=== PATIENT | male | born 1955 | race Caucasian/White ===

== ENCOUNTER 2016-06-21 11:00 | Emergency (ER) | payer OTHER, MEDICARE ==
[~2016-06-21] VITALS: Ht 167.6 cm; Wt 72.6 kg
[~2016-06-21 11:00] MED LIST: ACETAMINOPHEN-1 EAC3 PO; ALPHAGAN P5 M1 OPH; AMBIEN 10MG10 MG PO; ASPIRIN81 M4 PO; ATIVAN0.5 M1 PO; ATIVAN0.5 MG PO; ATIVAN1 MG PO; ATORVASTATIN CA40 MG PO; BACTRIM 400 MG-1 TAB PO; BACTRIM DS TAB1 EACH PO; BUMETANIDE1 M1 PO; BUPROPION HYDR300 M1 PO; CARVEDILOL6.25 MG PO; CELLCEPT250 MG PO; CEPHALEXIN500 M3 PO; CLOTRIMAZOLE10 M1 PO; COREG 12.5MG12.5 MG PO; CREON 120000 U-1 ECC PO; CYCLOBENZAPRINE5 MG PO; FLOMAX0.4 M1 PO; HALOPERIDOL1 M1 PO; HYDRALAZINE HCL25 M1 PO; LEVOTHROID0.175 MG PO; LEVOTHYROXINE0.15 MG PO; LEVOTHYROXINE175 MCG PO; LISINOPRIL10 M1 PO; LORAZEPAM1 MG PO; MACROBID 100 M100 MG PO; MIRALAX119 GM PO; MIRALAX17 GM PO; MULTIVITAMIN1 TAB PO; NEURONTIN100 MG PO; NEXIUM 40MG40 MG PO; NITROSTAT0.4 M1 SL; PERCOCET 5-3251 EACH PO; PRAVASTATIN40 MG PO; PREDNISONE5 M1 PO; PROGRAF 1MG1 MG PO; PROGRAF1 M1 PO; PROTOPIC 0.1% O60 GM PO; REMERON 7.5MG7.5 MG PO; REMERON15 M3 PO; ROZEREM8 MG PO; SODIUM BICARB325 MG PO; SODIUM BICARBO325 M1 PO; SULFAMETHOXAZO1 EAC1 PO; TACROLIMUS0.5 MG PO; TACROLIMUS1 M1 PO; TYLENOL #31 TAB PO; TYLENOL WITH C1 EACH PO; VITAMIN C500 M3 PO; VITAMIN D1000 IU PO; VITAMIN E100 I2 PO; WELLBUTRIN XL150 MG PO; XALATAN2.5 ML OPH; [UNRECOGNIZED DRUG - CODE] PO
[2016-06-21] MEDS ORDERED: TYLENOL325 M1 PO (11:05)
[2016-06-21] MEDS ORDERED: B COMPLEX1 EACH PO (11:06)
[2016-06-21] MEDS ORDERED: ARANESP60 MCG/0.3 SC (11:07)
[2016-06-21] MEDS ORDERED: COLACE100 M1 PO (11:08)
[2016-06-21] MEDS ORDERED: FAMOTIDINE20 M1 PO (11:09)
[2016-06-21] MEDS ORDERED: SENNA8.6 M3 PO (11:10)
[2016-06-21] MEDS ORDERED: HALOPERIDOL1 M1 PO (11:11)
[2016-06-21] MEDS ORDERED: CARVEDILOL12.5 M1 PO (11:12)
[2016-06-21] MEDS ORDERED: HYDRALAZINE HCL25 M1 PO (11:14)
[2016-06-21] MEDS ORDERED: PRAVACHOL40 M1 PO (11:15)
--- NOTE | 2016-06-21 12:58 | RADIOLOGY REPORT ---
EXAMINATION: XR PORTABLE CHEST CLINICAL INFORMATION: Status post fall. Rule out rib fracture. COMPARISON: Chest radiograph 03/06/2016. Rib radiographs 03/08/2016. TECHNIQUE: Portable AP 80 degree upright view of the chest was obtained. FINDINGS: Left jugular dialysis catheter extends to the SVC/RA junction region. Median sternotomy wires are seen. There are surgical clips in the left axillary region. The lung volumes are decreased with minor linear scarring or atelectasis at the left lung base. No evidence of pneumothorax or pleural effusion. There appears to be a mildly displaced left fifth rib fracture laterally; this finding was not obvious on the prior rib radiographs. IMPRESSION: Mild linear atelectasis is present at the left lung base. Mildly displaced left fifth rib fracture is demonstrated. No evidence of pneumothorax or pleural effusion.
--- NOTE | 2016-06-21 13:11 | ED MVC/FALL/TRAUMA COMPLAINT ---
History of Present Illness General Chief Complaint: General Adult Stated Complaint: BIBA BUMP ON THE BACK OF HIS HEAD Source: patient, family Exam Limitations: no limitations Vital Signs & Intake/Output Vital Signs & Intake/Output Vital Signs Date Time Temp Pulse Resp B/P Pulse O2 O2 Flow FiO2 Ox Delivery Rate 06/21 1231 96.4 06/21 1101 96.4 78 18 151/69 99 Room Air Allergies Coded Allergies: Penicillins (RASH ALL OVER 01/01/16) ciprofloxacin (From CIPRO) (SOB 01/01/16) meperidine (SOB, CHEST PAIN 01/01/16) sulfamethoxazole (From BACTRIM) (DOES SOMETHING TO HIS TRANSPLANT 04/16/16) trimethoprim (From BACTRIM) (DOES SOMETHING TO HIS TRANSPLANT 04/16/16) lactose (DIARRHEA 01/01/16) Reconcile Medications Acetaminophen (Tylenol) 325 MG TABLET 2 TAB PO Q8P PRN PAIN (Reported) Aspirin (Aspirin*) 81 MG TAB.CHEW 1 TAB PO DAILY HEART HEALTH (Reported) Brimonidine Tartrate (Alphagan P) 0.1 % DROPS 1 GTT OPH BID EYE (Reported) Carvedilol 12.5 MG TABLET 1 TAB PO BID HEART (Reported) Darbepoetin Jose in Polysorbat (Aranesp) 60 MCG/0.3 ML SYRINGE 1 INJ SC QW UNKNOWN (Reported) Docusate Sodium (Colace) 100 MG CAPSULE 1 CAP PO DAILY GI (Reported) Famotidine 20 MG TABLET 1 TAB PO DAILY NEEDED PRN GI (Reported) Haloperidol 1 MG TABLET 1 TAB PO QPM MENTAL HEALTH (Reported) Hydralazine HCl 25 MG TABLET 1 TAB PO TID HEART (Reported) Latanoprost (Xalatan) 0.005 % DROPS 1 GTT OPH QPM EYE (Reported) Levothyroxine Sodium 175 MCG TABLET 1 TAB PO DAILY AC THYROID HEALTH ( Reported) Mirtazapine (Remeron) 15 MG TAB.RAPDIS 1.5 TAB PO AT BEDTIME SLEEP (Reported ) Mycophenolate Mofetil (Cellcept) 250 MG CAPSULE 3 CAP PO BID TRANSPLANT ( Reported) Nitroglycerin (Nitrostat) 0.4 MG TAB.SUBL 1 TAB SL AD PRN CHEST PAIN ( Reported) 1st sign of attack; may repeat every 5 minutes until relief; if pain persists after 3 tablets in 15 minutes, prompt medical att Polyethylene Glycol 3350 (Miralax) 119 GM POWDER 17 GM PO NEEDED CONSTIPATION (Reported) mix with water, juice, soda, coffee or tea Pravastatin Sodium 80 MG TABLET 1 TAB PO DAILY HLD (Reported) Prednisone 5 MG TABLET 1 TAB PO DAILY TRANSPLANTS (Reported) Sennosides (Senna) 8.6 MG TABLET 1 TAB PO QPM GI (Reported) Sodium Bicarbonate 325 MG TABLET 4 TAB PO BID SUPPLEMENT (Reported) Tacrolimus 1 MG CAPSULE 1 CAP PO BID RENAL TRANSPLANT (Reported) Vitamin B Complex (B Complex) 1 EACH TABLET 1 TAB PO DAILY SUPPLEMENT ( Reported) Triage Note: PT STATES HE WAS USING HIS WALKER AND FELL BACKWARD HITTING HIS HEAD. PT STATES HE HAD + LOC NO BLOOD OR ABRASION NOTED TO BACK OF HEAD. Triage Nurses Notes Reviewed? yes HPI: 60 yo M PMH HTN, HLD, DM, CVA, Hypothyroidism, ESRD (on HD //) s/p renal Tx, PVD s/p R. BKA and L midfoot amputation presenting with head pain s/p fall. Patient was walking with walker (normally ambulates in wheelchair), lost balance , fell backwards striking occipital head on carpeted floor, ?unclear LOC, patient states he was unconscious for seconds, brief (1-2 second) loss of vision in right eye, found alert/awake by ~10 seconds after falling. C/O occipital head pain. Mechanical fall, denies precipitating dizziness, chest pain, palpitations, SOB, syncope. Denies neck pain/stiffness, N/V, diffuse headache, other focal neurologic Sx. Takes ASA 81 daily, no other blood thinners. (CAYDEN COLLINS,HERNANDO) Past History Travel History Traveled to [place] past 21 day No Medical History Any Pertinent Medical History? see below for history Neurological: CVA, TIA, NEUROPATHY EENT: diabetic retinopathy, diabetic retinopathy blindness left eye Cardiovascular: CAD, hypertension, hyperlipidemia, culture-negative endocarditis Respiratory: NONE Gastrointestinal: GERD, diverticulosis Hepatic: NONE Renal: chronic kidney disease, renal transplant Musculoskeletal: ARTHRITIS Psychiatric: anxiety Endocrine: diabetes, hypothyroidism, pancreas transplant Blood Disorders: NONE Cancer(s): NONE CLIENT DEVELOPMENT MANAGER/Reproductive: ENLARGED PROSTATE History of MRSA: No History of VRE: No History of CDIFF: No Surgical History Surgical History: N Psychosocial History Who do you live with Spouse Services at Home Nursing (2/WEEK), Occupational Therapy, Physical Therapy What is your primary language Taiwanese Tobacco Use: Never used Family History Family History, If Any: MOTHER (HTN). . FH: lung cancer Hx Contributory? Yes (HERNANDO RODARTE MD) Review of Systems Review of Systems Constitutional: Denies: chills, fever, weakness. Eyes: Reports: blindness. Ears, Nose, Throat, Mouth: Reports: no symptoms. Respiratory: Reports: no symptoms. Cardiovascular: Reports: no symptoms. Gastrointestinal/Abdominal: Reports: no symptoms. Genitourinary: Reports: no symptoms. Musculoskeletal: Reports: no symptoms. Skin: Reports: no symptoms. Neurological/Psychological: Reports: headache. All Other Systems: Reviewed and Negative (HERNANDO RODARTE MD) Physical Exam Physical Exam General Appearance: well developed/nourished, no apparent distress, alert, awake Head: evidence of injury, 2-3 cm hematoma to occipital scalp Eyes: Bilateral: EOMI. Ears, Nose, Throat, Mouth: Tympanic normal Neck: normal inspection, no midline tenderness Respiratory: normal breath sounds, chest non-tender Cardiovascular: regular rate/rhythm Peripheral Pulses: 2+ radial (R), 2+ radial (L) Gastrointestinal: normal bowel sounds, soft, non-tender Back: normal inspection Extremities: R BKA, L midfoot amputation Neurologic/Psych: awake, alert, oriented x 3 Comments: HEENT: 2-3 cm hematoma to occipital scalp, mild TTP without crepitus, instability, step-off or deformity, no overlying laceration/abrasion No TTP over facial bones, midface stable Left pupil non-reactive (baseline per patient and ), EOMI No hemotympanum bilaterally No septal deviation, hematoma Neck: No midline c-spine TTP Core Measures ACS in differential dx? No Severe Sepsis Present: No Septic Shock Present: No (HERNANDO RODARTE MD) Progress Differential Diagnosis: C/T/L spine injury, ICH, Hematoma, Soft tissue injury, Skull Fx (HERNANDO RODARTE MD) Plan of Care: Orders Procedure Date/time Status EKG 06/21 1130 Active 60 yo M PMH as above presenting with occipital head pain s/p mechanical fall. VSS, trauma exam as above. DDx: Hematoma, Skull Fx, C-spine Fx, ICH. Tylenol given with improvement in pain. CXR without acute traumatic injury or airspace disease. CT head/c-spine with ?NPH (seen on prior), no acute fracture, dislocation, ICH. CT scan results discussed with patient, per prior work-up for NPH without treatment, will f/u with PMD to discuss results. Ambulatory at baseline with walker in ED. D/Demetrio with return precautions, plan to f/u with PMD, tylenol for pain. D/W Dr. Brink. (CAYDEN COLLINS,HERNANDO) Departure Departure Disposition: HOME OR SELF CARE Condition: Stable Clinical Impression Primary Impression: Scalp hematoma Qualifiers: Encounter type: initial encounter Qualified Code: S00.03XA - Contusion of scalp, initial encounter Secondary Impressions: Fall Qualifiers: Encounter type: initial encounter Qualified Code: W19.XXXA - Unspecified fall, initial encounter Referrals: LAMINE COLLINS,ILANA Lubin (PCP/Family) Additional Instructions: Take tylenol as needed for pain. Follow up with Dr. Lay in the next 2-3 days, discuss results of CT head and possible normal pressure hydrocephalus. Return to the ED for any new, worsening, or concerning symptoms. Departure Forms: Customer Survey General Discharge Information (CAYDEN COLLINS,HERNANDO) Resident Co-Sign Statement Statement: ED Attending supervision documentation- [x] I saw and evaluated the patient. I have also reviewed all the pertinent lab results and diagnostic results. I agree with the findings and the plan of care as documented in the Resident's documentation. [] I have reviewed the ED Record and agree with the Resident's documentation. [] Additions or exceptions (if any) to the Resident's note and plan are summarized below: [] (BETTE COLLINS,JÚNIOR Pratt)
--- NOTE | 2016-06-21 13:16 | CT SCAN REPORT ---
EXAMINATION: CT OF THE HEAD WITHOUT CONTRAST CT SCAN OF THE CERVICAL SPINE WITHOUT CONTRAST CLINICAL INFORMATION: Fall. Occipital head pain. Occipital hematoma. Evaluate for intracranial hemorrhage. Low neck pain. COMPARISON: CT scan of the head dated 03/08/2016 and 02/10/2016. CT scan of the cervical spine dated 05/01/2014. TECHNIQUE: Contiguous axial imaging of the head was performed from the skull base to vertex without intravenous administration of contrast. Coronal reformations were obtained. Contiguous axial imaging of the cervical spine was performed from the skull base to the thoracic inlet without intravenous administration of contrast. Coronal and sagittal reformations were obtained. DLP: 959.50 mGy-cm. FINDINGS: CT SCAN OF THE HEAD: There is no evidence of acute intracranial hemorrhage or territorial infarction. No abnormal mass-effect or midline shift is seen. Pino to white matter differentiation is well preserved. No extra-axial fluid collections are identified. The lateral and third ventricles are again found to be enlarged, out of proportion to the degree of sulcal enlargement, raising the question of normal pressure hydrocephalus. There is persistent periventricular deep white matter and basal ganglia low-attenuation, consistent with ischemic small vessel disease. Dense calcifications of the vertebral arteries is seen. The osseous structures and soft tissues are normal. The mastoid air cells and visualized portions of the paranasal sinuses are well-aerated. CT SCAN OF THE CERVICAL SPINE: Normal alignment of the cervical spine is seen with no evidence of acute fracture or dislocation. Atlantoaxial articulation shows mild degenerative changes but is otherwise unremarkable. Craniocervical junction is intact. Disc space height is well-maintained at all levels. Mild facet arthropathy is seen at C3-C4 and C4-C5. No paraspinal soft tissue abnormality seen. IMPRESSION: CT SCAN OF THE HEAD: 1. No acute intracranial pathology. 2. Chronic finding of asymmetrically enlarged lateral and third ventricles, out of proportion to the degree of sulcal enlargement. Findings raise the suspicion of normal pressure hydrocephalus. Clinical correlation requested. 3. Changes of periventricular and basal ganglia diffuse ischemic small vessel disease again noted, unchanged. CT SCAN OF THE CERVICAL SPINE: 1. Normal alignment with no acute fracture or dislocation. 2. Mild facet arthropathy at C3-C4 and C4-C5.
[2016-06-21 14:35] VITALS: BP 142/63
[2016-10-19] MEDS ORDERED: FERROUS SULFAT325 M3 PO (11:56)
[2016-10-19] MEDS ORDERED: SANTYL30 GM TOP (11:57)
[2016-10-19] MEDS ORDERED: LASIX20 M1 PO (11:58)
[2016-10-19] MEDS ORDERED: GABAPENTIN100 M2 PO (11:59)
[2016-10-19] MEDS ORDERED: PROGRAF0.5 MG PO (12:02)
== END 2016-06-21 15:07 ==
LOC: ERH 11:00
DX: S00.03XA Contusion of scalp, initial encounter (principal); I10 Essential (primary) hypertension; W19.XXXA Unspecified fall, initial encounter; Y93.01 Activity, walking, marching and hiking
CPT/HCPCS: 93005; 93010

== ENCOUNTER 2016-07-27 17:25 | Emergency (ER) | payer OTHER, MEDICARE ==
[~2016-07-27] VITALS: Ht 167.6 cm; Wt 72.6 kg
[~2016-07-27 17:25] MED LIST changes: +ARANESP60 MCG/0.3 SC; +B COMPLEX1 EACH PO; +CARVEDILOL12.5 M1 PO; +COLACE100 M1 PO; +FAMOTIDINE20 M1 PO; +PRAVACHOL40 M1 PO; +SENNA8.6 M3 PO; +TYLENOL325 M1 PO
[2016-07-27 17:40] LABS: ABSOLUTE BASOPHIL COUNT 0 /CUMM (0.0-0.2); ABSOLUTE EOSINOPHIL COUNT 0.3 /CUMM (0.0-0.7); ABSOLUTE GRANULOCYTE CT 8.4 /CUMM (1.4-6.5); ABSOLUTE LYMPH COUNT 1.4 /CUMM (1.2-3.4); ABSOLUTE MONOCYTE COUNT 0.7 /CUMM (0.10-0.60); BASOPHIL % 0.1 % (0.0-2.0); EOSINOPHIL % 2.9 % (0-5); GRANULOCYTE % 77.7 % (42.2-75.2); HEMATOCRIT 22.4 % (42-52); MEAN CORPUSCULAR HGB CONC 31.3 G/DL (33.0-37.0); MEAN CORPUSCULAR VOLUME 86.4 FL (80.0-94.0); MEAN PLATELET VOLUME 9.3 FL (7.4-10.4); PLATELET COUNT 211 /CUMM (130-400); RBC DISTRIBUTION WIDTH 15.6 % (11.5-14.5); RED BLOOD CELL CT 2.59 /CUMM (4.70-6.10); WHITE BLOOD CELL COUNT 10.8 /CUMM (4.8-10.8)
--- NOTE | 2016-07-27 17:56 | ED GENERAL ADULT ---
History of Present Illness General Chief Complaint: General Adult Stated Complaint: DIARRHEA X 4 DAYS, WEAKNESS, LETHARGY, MALAISE Source: patient, family, old records, EMS Exam Limitations: no limitations Vital Signs & Intake/Output Vital Signs & Intake/Output Vital Signs Date Time Temp Pulse Resp B/P Pulse O2 O2 Flow FiO2 Ox Delivery Rate 07/27 2000 97.5 85 18 113/53 98 Room Air 07/27 1816 99 07/27 1730 96.5 89 18 119/56 99 Room Air ED Intake and Output 07/28 0000 07/27 1200 Intake Total 15 Output Total Balance 15 Intake, IV 15 Intake, Oral Patient 160 lb Weight Allergies Coded Allergies: Penicillins (RASH ALL OVER 07/27/16) meperidine (SOB, CHEST PAIN 07/27/16) sulfamethoxazole (From BACTRIM) (DOES SOMETHING TO HIS TRANSPLANT 07/27/16) trimethoprim (From BACTRIM) (DOES SOMETHING TO HIS TRANSPLANT 07/27/16) lactose (DIARRHEA 07/27/16) Reconcile Medications Acetaminophen (Tylenol) 325 MG TABLET 2 TAB PO Q8P PRN PAIN (Reported) Aspirin (Aspirin*) 81 MG TAB.CHEW 1 TAB PO DAILY HEART HEALTH (Reported) Brimonidine Tartrate (Alphagan P) 0.1 % DROPS 1 GTT OPH BID EYE (Reported) Carvedilol 12.5 MG TABLET 1 TAB PO BID HEART (Reported) Darbepoetin Jose in Polysorbat (Aranesp) 60 MCG/0.3 ML SYRINGE 1 INJ SC QW UNKNOWN (Reported) Docusate Sodium (Colace) 100 MG CAPSULE 1 CAP PO DAILY GI (Reported) Famotidine 20 MG TABLET 1 TAB PO DAILY NEEDED PRN GI (Reported) Haloperidol 1 MG TABLET 1 TAB PO QPM MENTAL HEALTH (Reported) Hydralazine HCl 25 MG TABLET 1 TAB PO TID HEART (Reported) Latanoprost (Xalatan) 0.005 % DROPS 1 GTT OPH QPM EYE (Reported) Levothyroxine Sodium 175 MCG TABLET 1 TAB PO DAILY AC THYROID HEALTH ( Reported) Mirtazapine (Remeron) 15 MG TAB.RAPDIS 1 TAB PO AT BEDTIME SLEEP (Reported) Mycophenolate Mofetil (Cellcept) 250 MG CAPSULE 3 CAP PO BID TRANSPLANT ( Reported) Nitroglycerin (Nitrostat) 0.4 MG TAB.SUBL 1 TAB SL AD PRN CHEST PAIN ( Reported) 1st sign of attack; may repeat every 5 minutes until relief; if pain persists after 3 tablets in 15 minutes, prompt medical att Polyethylene Glycol 3350 (Miralax) 119 GM POWDER 17 GM PO NEEDED CONSTIPATION (Reported) mix with water, juice, soda, coffee or tea Pravastatin Sodium 80 MG TABLET 1 TAB PO DAILY HLD (Reported) Prednisone 5 MG TABLET 1 TAB PO DAILY TRANSPLANTS (Reported) Sennosides (Senna) 8.6 MG TABLET 1 TAB PO QPM GI (Reported) Sodium Bicarbonate 325 MG TABLET 4 TAB PO BID SUPPLEMENT (Reported) Tacrolimus 1 MG CAPSULE 1-1.5 CAP PO BID RENAL TRANSPLANT (Reported) TAKE 1.5 IN AM AND 1 IN PM Vitamin B Complex (B Complex) 1 EACH TABLET 1 TAB PO DAILY SUPPLEMENT ( Reported) Triage Note: PT BIBA FROM HOME C/C DIARRHEA X 4 DAYS WITH WEAKNESS, LETHARGY AND GENERAL MALAISE. ALSO PER REPORT PATIENTS LAST EPISODE OF DIARRHEA HAD SOME BRB IN IT. PT A/O ON ARRIVAL, DENIES ANY PAIN. 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 PT R ABD NOTED TO BE QUIVERING DURING TRIAGE PROCESS, WHEN ASKING PATIENT ABOUT SAME REPORTS IT HAS HAPPENED BEFORE, WHEN ASKED WHY PT RESPONDED IN ANGRY TONE STATING "BECAUSE I'M FREEZING". PT IS OTHER EAST NOT NOTED TO BE SHIVERING. Triage Nurses Notes Reviewed? yes HPI: Patient is a 60-year-old male presents complaining of diarrhea. Diarrhea onset 8 days ago. 2-3 episodes of diarrhea daily. Today patient had an episode of bright red blood in his stool. Patient attributes the bright red blood in his stool 2 skin irritation around his anus. Patient also had one episode of vomiting that appeared brown in color. No current nausea. Patient had associated generalized weakness earlier today, denies any generalized weakness at this time. Patient was on antibiotics a couple of weeks ago while hospitalized at [facility](transplant specialist Dr. Trivedi). Patient required a blood transfusion while he was hospitalized. Patient scheduled to have a darbepoetin injection in 2 days. Patient had a C. difficile test sent 2 days ago which was negative. Patient denies abdominal pain, chest pain, fevers, chills. (HEILBRALLYSON BERUMEN) Past History Travel History Traveled to [place] past 21 day No Medical History Any Pertinent Medical History? see below for history Neurological: CVA, TIA, NEUROPATHY EENT: diabetic retinopathy, diabetic retinopathy blindness left eye Cardiovascular: CAD, hypertension, hyperlipidemia, culture-negative endocarditis Respiratory: NONE Gastrointestinal: GERD, diverticulosis Hepatic: NONE Renal: chronic kidney disease, renal transplant Musculoskeletal: ARTHRITIS Psychiatric: anxiety Endocrine: diabetes, hypothyroidism, pancreas transplant Blood Disorders: NONE Cancer(s): NONE SYNCHRO ASSEMBLER/Reproductive: ENLARGED PROSTATE History of MRSA: No History of VRE: No History of CDIFF: No Surgical History Surgical History: N Psychosocial History Who do you live with Spouse Services at Home Nursing (2/WEEK), Occupational Therapy, Physical Therapy What is your primary language Czech Family History Family History, If Any: MOTHER (HTN). . FH: lung cancer Hx Contributory? No (ALLYSON ADORNO) Review of Systems Review of Systems Constitutional: Reports: weakness (none currently). Denies: chills, fever. EENTM: Reports: no symptoms. Respiratory: Denies: cough, short of breath. Cardiovascular: Denies: chest pain. GI: Reports: see HPI. Genitourinary: Reports: no symptoms. Musculoskeletal: Reports: no symptoms. Skin: Reports: lesions. Neurological/Psychological: Reports: no symptoms. Hematologic/Endocrine: Reports: bleeding. Immunologic/Allergic: Reports: no symptoms. (ALLYSON ADORNO) Physical Exam Physical Exam General Appearance: alert, awake Head: atraumatic, normal appearance Ears, Nose, Throat: normal pharynx, normal ENT inspection, hearing grossly normal Neck: normal inspection, supple, full range of motion Respiratory: normal breath sounds, chest non-tender, no respiratory distress, lungs clear Cardiovascular: regular rate/rhythm Gastrointestinal: normal bowel sounds, soft, non-tender Rectal: patient declined rectal exam Back: normal inspection, normal range of motion Extremities: right BKA. Trace edema left lower extremity Neurologic/Psych: awake, alert, oriented x 3 Skin: warm/dry Lymphatic: no anterior cervical marya Core Measures ACS in differential dx? Yes ASA ordered for poss ACS? No-d/t bleeding/risk of CVA/TIA Diagnosis: No Severe Sepsis Present: No Septic Shock Present: No (ALLYSON ADORNO) Progress Differential Diagnoses I considered the following diagnoses in my evaluation of the patient: Anemia, intra-abdominal infection, sepsis, ischemic colitis, diverticulitis, electrolyte abnormality, acute kidney injury Plan of Care: Orders Procedure Date/time Status MISTAKE 07/28 1755 Active EKG 07/28 1755 Active Add-on Test (ER Only) 07/27 1752 Active TYPE & SCREEN (NOT X-MATCH) 07/27 173 Complete TROPONIN LEVEL 07/27 1728 Complete MAGNESIUM 07/27 1728 Complete LACTIC ACID 07/27 1728 Complete COMPREHENSIVE METABOLIC PANEL 07/27 1728 Complete CBC WITHOUT DIFFERENTIAL 07/27 1728 Complete Laboratory Tests 07/27/162028: Lactic Acid Cancelled 07/27/161729: Anion Gap 13, Estimated GFR 28 L, BUN/Creatinine Ratio 25.0, Glucose 120 H, Lactic Acid 2.4 H, Calcium 9.0, Magnesium 1.5 L, Total Bilirubin 0.3, AST 9 L , ALT 26, Alkaline Phosphatase 46, Troponin I 0.05, Total Protein 6.0 L, Albumin 3.5, Globulin 2.5, Albumin/Globulin Ratio 1.4, CBC w Diff NO MAN DIFF REQ, RBC 2.59 L, MCV 86.4, MCH 27.0, RDW 15.6 H, MPV 9.3, Gran % 77.7 H, Lymphocytes % 13.1 L, Monocytes % 6.2, Eosinophils % 2.9, Basophils % 0.1, Absolute Granulocytes 8.4 H, Absolute Lymphocytes 1.4, Absolute Monocytes 0.7 H, Absolute Eosinophils 0.3, Absolute Basophils 0, PUBS MCHC 31.3 L 07/27/161728: Urine Color Cancelled, Urine Clarity Cancelled, Urine pH Cancelled, Ur Specific [place] Cancelled, Urine Protein Cancelled, Urine Ketones Cancelled, Urine Nitrite Cancelled, Urine Bilirubin Cancelled, Urine Urobilinogen Cancelled, Ur Leukocyte Esterase Cancelled, Ur Microscopic Cancelled, Urine Hemoglobin Cancelled, Urine Glucose Cancelled Discussed with Dr. Coleman. 07/27/2016 7:41:26 PM: Discussed with Dr. Brown([place] [facility] service): start patient on antibiotics and transfer over to [place] to 9W. Results and disposition discussed with patient and his . Consented to transfer. Ceftriaxone and Flagyl ordered. (RUCHI GRIMALDO,ALLYSON) Diagnostic Imaging: Viewed by Me: CT Scan. Discussed w/RAD: CT Scan. Radiology Impression: PATIENT: SANFORD MALIK PRESENT AGE: 60 PATIENT ACCOUNT NO: [id number] : 55 LOCATION: [facility] ORDERING PHYSICIAN: ALLYSON GRIMALDO SERVICE DATE: 07/27/16 EXAM TYPE: CAT - CT ABD & PELVIS W/O IV CONTRAS EXAMINATION: CT ABDOMEN AND PELVIS WITHOUT CONTRAST CLINICAL INFORMATION: Diarrhea, bright red blood per rectum. COMPARISON: 02/20/2016. TECHNIQUE: Contiguous axial thin section helical images of the abdomen and pelvis were performed without oral or IV contrast. The data set was reformatted in the coronal and sagittal planes and reviewed on an independent workstation. DLP: 255 mGy-cm. FINDINGS: The visualized lung bases are clear. The visualized portions of the heart are unremarkable. There is a small hiatal hernia. The liver is of normal size and attenuation without focal lesions nor intrahepatic biliary ductal dilation. Patient status post cholecystectomy. Surgical clips are identified. The spleen, pancreas, adrenal glands are unremarkable. There is neither hydronephrosis nor nephrolithiasis. There is marked bilateral renal cortical thinning. There is a stable exophytic 7 mm soft tissue attenuation lesion emanating from the lower pole of the left kidney. There are diffuse vascular calcifications present bilaterally. There is a fat-containing anterior abdominal wall hernia. There is no abdominal free fluid. There is neither mesenteric nor retroperitoneal lymphadenopathy. There is diverticulosis. Within the sigmoid colon, there is mild wall thickening along with mild adjacent fat stranding. There is no pelvic free fluid.. The urinary bladder is well distended. There is no bladder wall thickening. There is neither pelvic nor inguinal lymphadenopathy. Bone windows: Neither sclerotic nor lytic bone lesions are identified. There is stable disc height loss and endplate sclerotic change at L2/L3. IMPRESSION: Sigmoid diverticulosis with mild manifestations of diverticulitis. No fluid collections identified. Diffuse vascular calcification. Bilateral renal atrophy. DICTATED BY: MELANIE JAY MD DATE/TIME DICTATED:07/27/161834 OPTICIAN APPRENTICE DISPENSING:LIALA DATE/TIME TRANSCRIBED:07/27/161834 CONFIDENTIAL, DO NOT COPY WITHOUT APPROPRIATE AUTHORIZATION. <Electronically signed in Other Vendor System> SIGNED BY: MELANIE JAY MD 07/27/16 6528 Initial ED EKG: normal sinus rhythm at 88 bpm normal axis, normal intervals, possible LVH, nonspecific ST/T-wave changes in the lateral leads compared to previous EKG Prior EKG: changed Rhythm Strip: normal sinus rhythm (ALLYSON ADORNO) Departure Departure Time of Disposition: 1941 Disposition: OTHER [facility] (ACUTE) Condition: Stable Clinical Impression Primary Impression: Diverticulitis Secondary Impressions: [id number] kidney injury, Anemia Referrals: LAMINE COLLINS,ILANA Lubin (PCP/Family) Departure Forms: Customer Survey General Discharge Information (ALLYSON ADORNO) PA/TOOL AND CUTTER GRINDER Co-Sign Statement Statement: ED Attending supervision documentation- [X] I saw and evaluated the patient. I have also reviewed all the pertinent lab results and diagnostic results. I agree with the findings and the plan of care as documented in the PA's/TOOL AND CUTTER GRINDER's documentation. [X] I have reviewed the ED Record and agree with the PA's/TOOL AND CUTTER GRINDER's documentation. [] Additions or exceptions (if any) to the PAs/TOOL AND CUTTER GRINDER's note and plan are summarized below: [] (ROCHELLE COLLINS,ILANA Michaud) Critical Care Note Critical Care Note Critical Care Time: non-applicable (ALLYSON ADORNO)
--- NOTE | 2016-07-27 18:49 | CT SCAN REPORT ---
EXAMINATION: CT ABDOMEN AND PELVIS WITHOUT CONTRAST CLINICAL INFORMATION: Diarrhea, bright red blood per rectum. COMPARISON: 02/20/2016. TECHNIQUE: Contiguous axial thin section helical images of the abdomen and pelvis were performed without oral or IV contrast. The data set was reformatted in the coronal and sagittal planes and reviewed on an independent workstation. DLP: 255 mGy-cm. FINDINGS: The visualized lung bases are clear. The visualized portions of the heart are unremarkable. There is a small hiatal hernia. The liver is of normal size and attenuation without focal lesions nor intrahepatic biliary ductal dilation. Patient status post cholecystectomy. Surgical clips are identified. The spleen, pancreas, adrenal glands are unremarkable. There is neither hydronephrosis nor nephrolithiasis. There is marked bilateral renal cortical thinning. There is a stable exophytic 7 mm soft tissue attenuation lesion emanating from the lower pole of the left kidney. There are diffuse vascular calcifications present bilaterally. There is a fat-containing anterior abdominal wall hernia. There is no abdominal free fluid. There is neither mesenteric nor retroperitoneal lymphadenopathy. There is diverticulosis. Within the sigmoid colon, there is mild wall thickening along with mild adjacent fat stranding. There is no pelvic free fluid.. The urinary bladder is well distended. There is no bladder wall thickening. There is neither pelvic nor inguinal lymphadenopathy. Bone windows: Neither sclerotic nor lytic bone lesions are identified. There is stable disc height loss and endplate sclerotic change at L2/L3. IMPRESSION: Sigmoid diverticulosis with mild manifestations of diverticulitis. No fluid collections identified. Diffuse vascular calcification. Bilateral renal atrophy.
[2016-07-27 20:01] VITALS: BP 113/53
[2016-10-19] MEDS ORDERED: FERROUS SULFAT325 M3 PO (11:56)
[2016-10-19] MEDS ORDERED: SANTYL30 GM TOP (11:57)
[2016-10-19] MEDS ORDERED: LASIX20 M1 PO (11:58)
[2016-10-19] MEDS ORDERED: GABAPENTIN100 M2 PO (11:59)
[2016-10-19] MEDS ORDERED: PROGRAF0.5 MG PO (12:02)
== END 2016-07-27 20:25 | disposition short-term general hospital (02) ==
LOC: ERH 17:25
PROVIDERS: Emergency Medicine
DX: K57.92 Diverticulitis of intestine, part unspecified, without perforation or abscess without bleeding (principal); N17.9 Acute kidney failure, unspecified; N18.9 Chronic kidney disease, unspecified; D64.9 Anemia, unspecified; R53.1 Weakness; I10 Essential (primary) hypertension; E11.9 Type 2 diabetes mellitus without complications
CPT/HCPCS: 74176; 93005; 93010; 96365; 96375; J0696